=== PATIENT | female | born 1995 ===

== ENCOUNTER 2023-08-20 12:10 | Outpatient (AMB) | payer BC, SELFPAY ==
--- NOTE | 2023-08-20 12:09 | AM.OFFWIN_ITS ---
Intake Vital Signs 08/20/23 12:13 Height 5 ft 7 in Weight 240 lb BMI 37.6 BP 124/90 H Blood Pressure Location Lt brachial Position Sitting Pulse 75 Pulse Source Pulse Oximeter Temp 97.2 F Temp Source Temporal Artery Scan Pulse Oximetry (%) 98 Oxygen Delivery Method Room Air Intake Visit Reasons: EP low abdomen pain tissue/urine PCOS Intake Note: pt is here today for low abdomen pain tissue and urine started 3 days ago Patient Tobacco Use Status: Never used Tobacco Allergies No Known Allergies Allergy (Verified 08/20/23 12:18) Do you need a note to return to daycare/school/sports/work: Yes HPI HPI Comments History of Present Illness Details 28 y/o female presents to walk in clinic with c/o missed period x 1 month, lower abdominal pain and cloudy urine. LMP: 06/2023. Denies - has Vasectomy. Reports vaginal discharge that is clear. Denies abnormal vaginal discharge, itching or pain. Denies dysuria, hematuria, odor. Has h/o PCOS - being managed by [facility]. No h/o [facility] cancer . [facility] Social History Patient Tobacco Use Status: Never used Tobacco Review of Systems Const All systems reviewed & are unremarkable except as noted in HPI and below Physical Exam Vital Signs: Last Vital Signs Temp 97.2 F 08/20/23 12:13 Pulse 75 08/20/23 12:13 BP 124/90 H 08/20/23 12:13 Pulse Ox 98 08/20/23 12:13 Oxygen Delivery Method Room Air 08/20/23 12:13 BMI result Body Mass Index 37.6 Cardio Bruits: no abdominal aortic bruits GI Inspection: No distended, Yes incision (C/S scar), Yes Abdominal panniculus p resent and Yes obesity Palpation (GI): No Abdominal aortic bruit present, Soft to palpation, Tenderness to palpation present (GI) (mild tenderness periumbilical ) periumbilically, no guarding, not rigid and No hepatosplenomegaly present Auscultation: normal bowel sounds Rectal Exam - Female: deferred Other: Deferred pelvic exam to [facility] General: Yes no CVA tenderness Back/Spine/Pelvis Back: no CVA tenderness Results AMB Urinalysis, Automated UA Leukoctes 0 Ijeoma/uL Last Edit by Therese Beaulieu, FELY on 08/20/23 12:45 UA Nitrite Negative Last Edit by Therese Beaulieu, FELY on 08/20/23 12:45 UA Urobilinogen 0.2 mg/dL Last Edit by Therese Beaulieu, FELY on 08/20/23 12:45 UA Protein 15 mg/dL Last Edit by Therese Beaulieu, FELY on 08/20/23 12:45 UA pH 5.5 Last Edit by Therese Beaulieu, FELY on 08/20/23 12:45 UA Blood 0 Sascha/uL Last Edit by Therese Beaulieu, FELY on 08/20/23 12:45 UA Specific [place] 1.030 Last Edit by Therese Beaulieu, FELY on 08/20/23 12:4 5 UA Ketone Negative Last Edit by Therese Beaulieu, FELY on 08/20/23 12:45 UA Bilirubin 0 mg/dL Last Edit by Therese Beaulieu, FELY on 08/20/23 12:45 UA Glucose 0 mg/dL Last Edit by Therese Beaulieu, FELY on 08/20/23 12:45 Results Reviewed Results Reviewed: Laboratory Last Values Urine pH (Auto) 5.5 08/20/23 12:40 Specific [place] (Auto) 1.030 08/20/23 12:40 Urine Protein (Auto) 15 mg/dL 08/20/23 12:40 Glucose (UA)(Auto) 0 mg/dL 08/20/23 12:40 Urine Ketones (Auto) Negative 08/20/23 12:40 Urine Blood (Auto) 0 Sascha/uL 08/20/23 12:40 Urine Nitrite (Auto) Negative 08/20/23 12:40 Urine Bilirubin (Auto) 0 mg/dL 08/20/23 12:40 Urine Urobilinogen (Auto) 0.2 mg/dL 08/20/23 12:40 Leukocyte Esterase (Auto) 0 Ijeoma/uL 08/20/23 12:40 Assessment & Plan Assessment & Plan (1) Abdominal pain: Code(s): R10.9 - Unspecified abdominal pain Qualifiers: Abdominal location: periumbilical Qualified Code(s): R10.33 - Periumbilical pain Plan: - Will continue to monitor for now. - Ibuprofen for pain relief - Heat pad for pain relief - F/u with [facility] - POC Urinalysis negative Orders: Orders AMB Urinalysis Automated Today Z13.9 - Encounter for screening, unspecified Coding Level of Care Code Est Pt Level 3 (37327) Diagnoses Periumbilical abdominal pain R10.33 Abdominal location: periumbilical Time Spent (min) 15
[2023-08-20 12:13] VITALS: BP 124/90; PULSE 75; TEMP 36.2; O2SAT 98; BMI 37.6
== END 2023-08-20 13:35 | disposition home or self-care (01) ==
PROVIDERS: Visit Provider Nurse Practitioner Family
DX: R10.33 Periumbilical pain (principal)
CPT/HCPCS: 81003; 99213